=== PATIENT | female | born 1945 | race Caucasian/White ===

== ENCOUNTER → 2017-04-10 | Outpatient (CLI) | payer MEDICARE, OTHER ==
[~2017-04-10] MED LIST: ASCORBIC ACID500 MG PO; ASPIRIN (CHILDR81 MG PO; ATENOLOL-CHLOR1 EAC1 PO; COZAAR100 MG PO; CRESTOR20 MG PO; FISH OIL1000 MG PO; FOLIC ACID 40400 MCG PO; GLUCOPHAGE1000 MG PO; HUMIRA 4040 MG/0.8 SUB-Q; IMDUR60 MG PO; KLOR-CON 1010 MEQ PO; LANOXIN (DIGI125 MCG PO; LANOXIN (DIGI250 MCG PO; LEVEMIR100 UNIT/1 SUB-Q; NORVASC10 MG PO; NORVASC5 MG PO; NOVOLOG FL100 UNIT/1 SUB-Q; NOVOLOG100 UNIT/M SUB-Q; PLAVIX75 MG PO; TOUJEO SOL300 UNIT/1 SUB-Q
[2017-04-10 16:31] LABS: ALBUMIN 3.4 gm/dL (3.5-5.0); ANION GAP 13.4 (10.0-19.0); CALCIUM 8.7 mg/dL (8.5-10.5); POTASSIUM 4.4 mMol/L (3.7-5.1); TOTAL BILIRUBIN 0.6 mg/dL (0.0-1.5); TOTAL PROTEIN 6.9 g/dL (6.0-8.4)
== END ==
LOC: LNHI 15:48
PROVIDERS: Internal Medicine Interventional Cardiology
DX: I25.5 Ischemic cardiomyopathy (principal); I10 Essential (primary) hypertension